=== PATIENT | female | born 1960 | race Hispanic/Latino ===

== ENCOUNTER 2017-02-25 01:25 | Emergency (ER) | payer MEDICAID ==
[2017-02-25] MEDS ORDERED: METOCLOPRAMIDE 10 MG TABLET ONE (01:36)
[2017-02-25] MEDS ORDERED: CYCLOBENZAPRINE HCL 10 MG TABLET ONE (01:36)
[2017-02-25] MEDS ORDERED: KETOROLAC TROMETHAMINE 30MG/ML ONE (01:36)
[2017-06-18] MEDS ORDERED: ESOM40CA PO (11:51)
[2017-06-18] MEDS ORDERED: ZOLP10TA2 PO (11:51)
[2017-06-18] MEDS ORDERED: ALPR2TAB2 PO (11:51)
[2017-06-18] MEDS ORDERED: TRAM50TA4 PO (11:51)
== END 2017-02-25 03:45 | disposition home or self-care (01) ==
LOC: EDH 01:25
DX: R25.2 Cramp and spasm (principal); M54.2 Cervicalgia; R51 Headache; K21.9 Gastro-esophageal reflux disease without esophagitis; Z72.0 Tobacco use
CPT/HCPCS: 96372; 99283; J1885

== ENCOUNTER 2017-05-24 09:22 | Emergency (ER) | payer MEDICAID ==
[2017-05-24] MEDS ORDERED: DEXAMETHASONE SOD PHOSPHATE 10MG/ML 1ML VIAL ONE (09:54)
[2017-05-24] MEDS ORDERED: KETOROLAC TROMETHAMINE 60 MG/2 ML VIAL ONE (09:55)
[2017-06-18] MEDS ORDERED: ALPR2TAB2 PO (11:51)
[2017-06-18] MEDS ORDERED: ZOLP10TA2 PO (11:51)
[2017-06-18] MEDS ORDERED: TRAM50TA4 PO (11:51)
[2017-06-18] MEDS ORDERED: ESOM40CA PO (11:51)
== END 2017-05-24 10:39 | disposition home or self-care (01) ==
LOC: EDH 09:22
DX: M54.2 Cervicalgia (principal); M54.6 Pain in thoracic spine; G89.29 Other chronic pain; R51 Headache; K21.9 Gastro-esophageal reflux disease without esophagitis; M19.90 Unspecified osteoarthritis, unspecified site; Z72.0 Tobacco use
CPT/HCPCS: 96372 ×2; 99284; J1100; J1885

== ENCOUNTER 2017-07-10 05:34 | Day surgery (SDC) | payer MEDICAID ==
[~2017-07-10] VITALS: Ht 157.5 cm; Wt 74.5 kg
[~2017-07-10 05:34] MED LIST: ALPR2TAB2 PO; ESOM40CA PO; SODIUM CHLORIDE 0.9% 1000ML 1,000 ML IV ONE; TRAM50TA4 PO; ZOLP10TA2 PO
[2017-07-10] MEDS ORDERED: SODIUM CHLORIDE 0.9% 1000ML 1,000 ML IV ONE (05:50)
[2017-07-10 05:54] VITALS: BP 136/78
[2017-07-10] MEDS ORDERED: FENTANYL CITRATE PF 50 MCG/1 ML 2ML VIAL ONE (06:54)
[2017-07-10] MEDS ORDERED: PROPOFOL 10 MG/ML 20ML VIAL IV ONE ×2 (06:54)
[2017-07-10] MEDS ORDERED: GLYCOPYRROLATE 0.2 MG/ML 5 ML VIAL ONE (06:54)
[2017-07-10] MEDS ORDERED: PHENYLEPHRINE HCL 10 MG/ML 1ML VIAL IV ONE (07:06)
[2017-07-10 07:16] VITALS: BP 95/56
== END 2017-07-10 08:15 | disposition home or self-care (01) ==
LOC: ENDO 05:34 → DAH 05:34 → ENDO 08:15
PROVIDERS: ATTEND Internal Medicine Gastroenterology
DX: K63.5 Polyp of colon (principal); Z86.010 Personal history of colon polyps; F41.9 Anxiety disorder, unspecified; K21.9 Gastro-esophageal reflux disease without esophagitis; Z68.30 Body mass index [BMI] 30.0-30.9, adult; Z90.710 Acquired absence of both cervix and uterus; Z98.890 Other specified postprocedural states; Z79.899 Other long term (current) drug therapy; B18.2 Chronic viral hepatitis C; I10 Essential (primary) hypertension; K57.30 Diverticulosis of large intestine without perforation or abscess without bleeding
CPT/HCPCS: 45380; 88305; A4606; J2370; J2704 ×2; J3010; J3490; J7030

== ENCOUNTER 2017-11-04 05:50 | Emergency (ER) | payer MEDICAID ==
[~2017-11-04 05:50] MED LIST changes: -SODIUM CHLORIDE 0.9% 1000ML 1,000 ML IV ONE
[2017-11-04] MEDS ORDERED: KETOROLAC TROMETHAMINE 60 MG/2 ML VIAL ONE (06:08)
== END 2017-11-04 06:39 | disposition home or self-care (01) ==
LOC: EDH 05:50
DX: M25.511 Pain in right shoulder (principal); H92.01 Otalgia, right ear; F41.9 Anxiety disorder, unspecified; K21.9 Gastro-esophageal reflux disease without esophagitis; Z72.0 Tobacco use
CPT/HCPCS: 73030; 96372; 99284; J1885

== ENCOUNTER 2020-08-29 08:52 | Emergency (ER) | payer MEDICAID ==
[~2020-08-29] VITALS: Ht 157.5 cm; Wt 84.8 kg
[2020-08-29 08:56] VITALS: BP 153/98
[2020-08-29 10:25] VITALS: BP 140/86
[2020-08-29] MEDS ORDERED: KETOROLAC 60 MG VIAL (30MG/ML) IM ONE (11:30)
[2020-08-29] MEDS ORDERED: NAPR-1180 PO (12:39)
== END 2020-08-29 12:47 | disposition home or self-care (01) ==
LOC: EDH 08:52
DX: M75.52 Bursitis of left shoulder (principal); F41.9 Anxiety disorder, unspecified; I10 Essential (primary) hypertension; M19.90 Unspecified osteoarthritis, unspecified site; Z79.1 Long term (current) use of non-steroidal anti-inflammatories (NSAID); Z79.899 Other long term (current) drug therapy
CPT/HCPCS: 73030; 96372; 99283; J1885

== ENCOUNTER 2022-02-16 08:46 | Emergency (ER) | payer MEDICAID ==
[~2022-02-16] VITALS: Ht 157.5 cm; Wt 82.6 kg
[~2022-02-16 08:46] MED LIST changes: +NAPR-1180 PO
[2022-02-16 08:47] VITALS: BP 156/85
[2022-02-16 09:03] LABS: APPEARANCE,URINE CLOUDY (CLEAR); BILIRUBIN,URINE NEGATIVE (NEGATIVE); COLOR,URINE LIGHT-YELLOW (YELLOW); GLUCOSE, URINE (UA) NEGATIVE (NEGATIVE); KETONES,URINE 10 mg/dL (NEGATIVE); LEUKOCYTE ESTERASE ,URINE NEGATIVE Leu/uL (NEGATIVE); NITRATE,URINE NEGATIVE (NEGATIVE); PH,URINE 7.5 (5.0-8.0); PROTEIN,URINE NEGATIVE (NEGATIVE); UROBILINOGEN,URINE 3 mg/dL (0.2-1.0)
[2022-02-16 09:06] LABS: BASOPHILS % (AUTO) 0.4 % (0.0-5.0); EOSINOPHILS % (AUTO) 1.4 % (0.0-8.0); HEMATOCRIT 37.9 % (36-48); LYMPHOCYTES % (AUTO) 22.1 % (21.0-51.0); MEAN CORPUSCULAR HEMOGLOBIN 30.1 pg (27.0-33.0); MEAN CORPUSCULAR HGB CONC 32.7 g/dL (32.0-36.0); MONOCYTES % (AUTO) 12.6 % (3.0-13.0); NEUTROPHILS % (AUTO) 63.2 % (40.0-77.0); PLATELET COUNT (AUTO) 277 K/uL (130-400); RED BLOOD CELL COUNT(AUTO) 4.12 MIL/uL (4.00-5.50); RED CELL DISTRIBUTION WIDTH 12.1 % (11.0-15.5)
[2022-02-16 09:11] LABS: MUCUS,URINE RARE LPF (None Seen); SQUAMOUS EPITHELIAL CELL,UR MOD /HPF (0-2)
[2022-02-16 09:15] LABS: CREATININE 0.8 mg/dL (0.5-1.5); POTASSIUM 3.8 mmol/L (3.5-5.1)
[2022-02-16 09:20] LABS: ALBUMIN 3.6 g/dL (3.5-5.0); TOTAL PROTEIN, SERUM 8.3 g/dL (6.0-8.3)
[2022-02-16] MEDS ORDERED: KETOROLAC 30MG VIAL (30MG/ML) IVP ONE (10:30)
[2022-02-16] MEDS ORDERED: MORPHINE 4 MG SYG IVP ONE (13:30)
[2022-02-16] MEDS ORDERED: CEFTRIAXONE 1G VIAL IVP ONE (13:30)
[2022-02-16] MEDS ORDERED: ACET-2079 PO (14:03)
[2022-02-16] MEDS ORDERED: CEPH500B PO (14:03)
== END 2022-02-16 14:53 | disposition home or self-care (01) ==
LOC: EDH 08:46
DX: N39.0 Urinary tract infection, site not specified (principal); R10.9 Unspecified abdominal pain; F41.9 Anxiety disorder, unspecified; I10 Essential (primary) hypertension; M19.90 Unspecified osteoarthritis, unspecified site; Z79.899 Other long term (current) drug therapy; Z98.890 Other specified postprocedural states
CPT/HCPCS: 99284; 74176; 96374; 96375; 80053; 85025; 81001; 36415; J0696; J2270; J1885

== ENCOUNTER 2023-02-06 09:27 | Emergency (ER) | payer MEDICAID ==
[~2023-02-06] VITALS: Ht 157.5 cm; Wt 70.8 kg
[~2023-02-06 09:27] MED LIST changes: +ACET-2079 PO; +CEPH500B PO
[2023-02-06] MEDS ORDERED: IBUP-2070 PO (10:40)
[2023-02-06] MEDS ORDERED: LIDO1ADH82 TP (10:40)
[2023-02-06] MEDS ORDERED: CYCL10TA16 PO (10:40)
[2023-02-06] MEDS ORDERED: KETOROLAC 30MG VIAL (30MG/ML) IM ONE (11:00)
[2023-02-06] MEDS ORDERED: CYCLOBENZAPRINE HCL 10 MG TABLET PO ONE (11:00)
[2023-02-06 11:03] VITALS: BP 124/67; PULSE 65; RESP 17; O2SAT 98
== END 2023-02-06 11:02 | disposition home or self-care (01) ==
LOC: EDH 09:27
DX: S16.1XXA Strain of muscle, fascia and tendon at neck level, initial encounter (principal); B02.29 Other postherpetic nervous system involvement; F41.9 Anxiety disorder, unspecified; M19.90 Unspecified osteoarthritis, unspecified site; I10 Essential (primary) hypertension; X58.XXXA Exposure to other specified factors, initial encounter; Y93.89 Activity, other specified; Y92.89 Other specified places as the place of occurrence of the external cause; Y99.8 Other external cause status
CPT/HCPCS: 99283; 96372; J1885